=== PATIENT | male | born 1950 | race African-American/Black ===

== ENCOUNTER 2021-10-15 10:20 | Outpatient (CLI) | payer MEDICARE | END 2021-10-15 10:21 | disposition home or self-care (01) | LOC: CSHULT 10:20 | PROVIDERS: ATTEND Family Medicine | DX: R09.89 Other specified symptoms and signs involving the circulatory and respiratory systems (principal) | CPT/HCPCS: 93880 ==

== ENCOUNTER 2022-03-18 09:07 | Outpatient (CLI) | payer MEDICARE | END 2022-03-18 09:08 | disposition home or self-care (01) | LOC: CSHRAD 09:07 | PROVIDERS: ATTEND Family Medicine | DX: S69.92XA Unspecified injury of left wrist, hand and finger(s), initial encounter (principal) ==